=== PATIENT | female | born 1985 | race Caucasian/White ===

== ENCOUNTER 2016-07-30 07:22 | Emergency (ER) | payer OTHER ==
[~2016-07-30] VITALS: Ht 152.4 cm; Wt 98.8 kg
[~2016-07-30 07:22] MED LIST: ATV/1 PO; CYCL5TAB PO
[2016-07-30 07:26] VITALS: TEMP 38.7; Ht 152.4 cm; Wt 98.8 kg
[2016-07-30] MEDS ORDERED: KETOROLAC TROMETHAMINE 30 MG/ML VIAL IV STA (08:00)
[2016-07-30] MEDS ORDERED: SODIUM CHLORIDE 0.9% 1000ML 2,000 ML IV STA (08:00)
--- NOTE | 2016-07-30 08:05 | EMERGENCY ROOM VISIT NOTE ---
History Report prepared by Shelley: Felix Phillips Under the Supervision of: Dr. Patricia Gauthier M.D. First contact with patient: 07:30 Chief Complaint: FLU LIKE SX Stated Complaint: FEVER,HEADACHE,CHILLS,DIFFICULTY SWALLOWING History of Present Illness The patient is a 31 year old female who presents to the Emergency Room with complaints of persistent flu-like symptoms for the past few days. The patient complains of body aches, fever, ear pain, and difficulty swallowing. She notes at fever of 100.7 throughout the night last night. She notes she was taking medication including Tylenol Cold and Flu day and night pack. The patient has been sick on and off for three weeks with similar symptoms. Last week she finished Augmentin for a sinus infection. She started to feel a little bit better after the antibiotic, but then her symptoms worsened again. The patient did not get her flu shot this year. Source of History: patient Onset: past few days Position: other (global) Timing: other (persistent) Associated Symptoms: + fevers Note: Other associated symptoms: body aches, ear pain, difficulty swallowing Review of Systems See HPI for pertinent positives & negatives. A total of 10 systems reviewed and were otherwise negative. Past Medical & Surgical Medical Problems: (1) Appendectomy (2) Endomyometritis (3) History of miscarriage (4) Hx of D&C post-miscarriage Surgical Problems: (1) History of appendectomy (2) Hx of wisdom tooth extraction Family History Hypertension Social History Smoking Status: Former Smoker Alcohol Use: occasionally Drug Use: none Marital Status: in relationship Housing Status: lives with family Occupation Status: employed Current/Historical Medications Scheduled PRN Oxycodone Immediate Rel Tab (Roxicodone Ir), 1-2 TAB PO Q6 PRN for Severe Pain Allergies Coded Allergies: Nitrofurantoin (Unverified Adverse Reaction, Intermediate, RASH, STOMACH UPSET, 07/30/16) Physical Exam Vital Signs Date Time Temp Pulse Resp B/P Pulse Ox O2 Delivery O2 Flow Rate FiO2 07/30/16 10:58 112 18 129/74 97 Room Air 07/30/16 09:25 120 18 119/80 97 Room Air 07/30/16 07:26 38.7 136 18 141/85 97 Room Air Physical Exam Vital signs reviewed. General: Somewhat ill-appearing, in no significant distress. HEENT: No scleral icterus, PERRLA, neck supple. Atraumatic. Exudate on tonsils and dry cough. Cardiovascular: Tachycardic, no extra sounds. Pulmonary: Clear to auscultation bilaterally, normal work of breathing. Abdomen: Soft, nontender, nondistended, positive bowel sounds. Musculoskeletal: Atraumatic, no peripheral edema. Neurologic: Patient awake alert and oriented x 3, full strength in all 4 extremities. Cranial nerves 2 through 12 grossly intact. Skin: Warm, dry, no rash Medical Decision & Procedures ER Provider Diagnostic Interpretation: X-ray results as stated below per interpretation by me and the radiologist: CHEST ONE VIEW PORTABLE CLINICAL HISTORY: fever, cough, ST dyspnea COMPARISON STUDY: None FINDINGS: The bones soft tissues and hemidiaphragms are normal. The cardiomediastinal silhouette is normal. The lungs are clear. The pulmonary vasculature is normal. IMPRESSION: Negative chest. Electronically signed by: Jose Oconnor M.D. 07/30/2016 8:27 AM Dictated Date/Time: 07/30/2016 8:26 AM Laboratory Results 07/30/16 07:50 Red Blood Count 4.49, Mean Corpuscular Volume 79.3, Mean Corpuscular Hemoglobin 27.4, Mean Corpuscular Hemoglobin Concent 34.6, Mean Platelet Volume 9.6, Neutrophils (%) (Auto) 86.6, Lymphocytes (%) (Auto) 8.2, Monocytes (%) (Auto) 4.7, Eosinophils (%) (Auto) 0.0, Basophils (%) (Auto) 0.2, Neutrophils # (Auto) 10.00, Lymphocytes # (Auto) 0.94, Monocytes # (Auto) 0.54, Eosinophils # (Auto) 0.00, Basophils # (Auto) 0.02 07/30/16 07:50 Test 07/30/16 07:35 07/30/16 07:50 Influenza Type A (RT-PCR) Neg for Influ A (NEG) Influenza Type B (RT-PCR) Neg for Influ B (NEG) White Blood Count 11.53 K/uL (4.8-10.8) Red Blood Count 4.49 M/uL (4.2-5.4) Hemoglobin 12.3 g/dL (12.0-16.0) Hematocrit 35.6 % (37-47) Mean Corpuscular Volume 79.3 fL (80-100) Mean Corpuscular Hemoglobin 27.4 pg (25-34) Mean Corpuscular Hemoglobin Concent 34.6 g/dl (32-36) Platelet Count 234 K/uL (130-400) Mean Platelet Volume 9.6 fL (7.4-10.4) Neutrophils (%) (Auto) 86.6 % Lymphocytes (%) (Auto) 8.2 % Monocytes (%) (Auto) 4.7 % Eosinophils (%) (Auto) 0.0 % Basophils (%) (Auto) 0.2 % Neutrophils # (Auto) 10.00 K/uL (1.4-6.5) Lymphocytes # (Auto) 0.94 K/uL (1.2-3.4) Monocytes # (Auto) 0.54 K/uL (0.11-0.59) Eosinophils # (Auto) 0.00 K/uL (0-0.5) Basophils # (Auto) 0.02 K/uL (0-0.2) RDW Standard Deviation 40.7 fL (36.4-46.3) RDW Coefficient of Variation 14.3 % (11.5-14.5) Immature Granulocyte % (Auto) 0.3 % Immature Granulocyte # (Auto) 0.03 K/uL (0.00-0.02) Anion Gap 12.0 mmol/L (3-11) Est Creatinine Clear Calc Drug Dose 110.8 ml/min Estimated GFR () 117.2 Estimated GFR (Non- 101.2 BUN/Creatinine Ratio 11.1 (10-20) Calcium Level 8.9 mg/dl (8.5-10.1) Total Bilirubin 0.5 mg/dl (0.2-1) Direct Bilirubin < 0.1 mg/dl (0-0.2) Aspartate Amino Transf (AST/SGOT) 10 U/L (15-37) Alanine Aminotransferase (ALT/SGPT) 19 U/L (12-78) Alkaline Phosphatase 58 U/L (45-117) Total Protein 7.9 gm/dl (6.4-8.2) Albumin 3.7 gm/dl (3.4-5.0) Human Chorionic Gonadotropin, Qual NEG (NEG) Monoscreen NEG (NEG) Laboratory results per my review. Medications Administered Medications (Trade) Dose Ordered Sig/Federica Route Start Time Stop Time Status Last Admin Dose Admin Ketorolac Tromethamine 30 mg 30 mg NOW STAT IV 07/30/16 08:00 07/30/16 08:02 DC 07/30/16 08:17 30 MG Sodium Chloride (Nss 1000ml) 2,000 ml @ 999 mls/hr Q2H1M STAT IV 07/30/16 08:00 07/30/16 10:00 DC 07/30/16 08:17 999 MLS/HR Acetaminophen (Tylenol Tab) 650 mg STK-MED ONCE .ROUTE 07/30/16 09:59 07/30/16 10:01 DC 07/30/16 10:09 650 MG ED Course 0759: Past medical records reviewed. The patient was evaluated in room B5. A complete history and physical examination was performed. 0800: Ordered NSS 2000 ml @ 999 mls/hr IV, Toradol Inj 30 mg IV. 0959: Ordered Tylenol Tab 650 mg .ROUTE. 1056: Upon reevaluation, the patient appeared to have improvement of her symptoms. I discussed findings with her. She verbalized agreement of the treatment plan. The patient was discharged home. Medical Decision Fever: Influenza, other viral illness, pneumonia, strep pharyngitis, urinary tract infection, metabolic abnormality, medication effect, cellulitis, meningitis, intra-abdominal source. This pt was evaluated and appeared to be in no distress. IV access was obtained and lab work was drawn. PT was placed on the cardiac monitor technician. She was hydrated with NSS. Lab work is fairly unrevealing with exception of a mild leukocytosis. Influenza and strep swabs are negative, formal throat culture is pending. Pt felt improvement after IV toradol and oral tylenol. Pt was informed of the findings and agrees with the plan. She will f/u with her PCP and return to the ED for worsening of symptoms or any medical concerns. Impression Primary Impression: Influenza-like symptoms Scribe Attestation The scribe's documentation has been prepared under my direction and personally reviewed by me in its entirety. I confirm that the note above accurately reflects all work, treatment, procedures, and medical decision making performed by me. Departure Information Dispostion Home / Self-Care Prescriptions Oxycodone Immediate Rel Tab (ROXICODONE IR) 5 Mg Tab 1-2 TAB PO Q6 Y for Severe Pain, #15 TAB Prov: Abrahan, Patricia B.,M.D. 07/30/16 Referrals No Doctor, Assigned (PCP) Forms HOME CARE DOCUMENTATION FORM, IMPORTANT VISIT INFORMATION Patient Instructions My [facility] Additional Instructions Diagnosis: Flulike symptoms Tylenol 650 mg every 6 hours as needed for pain or fever Ibuprofen 600 mg every 6 hours as needed for pain or fever. OxyIR 5-10 mg every 6 hours as needed for severe pain. Do not drive on this medication. Drink plenty of clear fluids. Follow-up with your physician this week for reevaluation. Return to the ER for worsening of symptoms or any medical concerns.
[2016-07-30 08:16] LABS: BASO % 0.2 %; BASO ABS # 0.02 K/uL (0-0.2); COMPLETE YES; HEMATOCRIT 35.6 % (37-47); IG% 0.3 %; LYMPH % 8.2 %; LYMPH ABS # 0.94 K/uL (1.2-3.4); MEAN CELL VOLUME 79.3 fL (80-100); MEAN CORPUSCULAR HEMOGLOBIN 27.4 pg (25-34); MEAN CORPUSCULAR HGB CONC 34.6 g/dl (32-36); MEAN PLATELET VOLUME 9.6 fL (7.4-10.4); MONO % 4.7 %; NEUT % 86.6 %; PLATELET COUNT 234 K/uL (130-400); RED BLOOD COUNT 4.49 M/uL (4.2-5.4); WHITE BLOOD COUNT 11.53 K/uL (4.8-10.8)
--- NOTE | 2016-07-30 08:28 | DIAGNOSTIC IMAGING REPORT ---
CHEST ONE VIEW PORTABLE CLINICAL HISTORY: fever, cough, ST dyspnea COMPARISON STUDY: None FINDINGS: The bones soft tissues and hemidiaphragms are normal. The cardiomediastinal silhouette is normal. The lungs are clear. The pulmonary vasculature is normal. IMPRESSION: Negative chest. Electronically signed by: Jose Oconnor M.D. 07/30/2016 8:27 AM Dictated Date/Time: 07/30/2016 8:26 AM
[2016-07-30 08:35] LABS: ALT/SGPT 19 U/L (12-78); BLOOD UREA NITROGEN 9 mg/dl (7-18); BUN/CREATININE RATIO 11.1 (10-20); CALCIUM 8.9 mg/dl (8.5-10.1); CARBON DIOXIDE 20 mmol/L (21-32); CHLORIDE 106 mmol/L (98-107); CREATININE 0.79 mg/dl (0.60-1.20); GLUCOSE 100 mg/dl (70-99); POTASSIUM 3.6 mmol/L (3.5-5.1); SODIUM 138 mmol/L (136-145)
[2016-07-30 08:38] LABS: ALKALINE PHOSPHATASE 58 U/L (45-117); AST/SGOT 10 U/L (15-37)
[2016-07-30 08:49] LABS: PREG INTERNAL NEGATIVE QC NEG CLEAR BACKGROUND; PREG INTERNAL POSITIVE QC POS CONTROL LINE
[2016-07-30] MEDS ORDERED: ACETAMINOPHEN 325 MG TAB ONE (09:59)
[2016-07-30] MEDS ORDERED: NURSING VERBAL MED ORDER ONE (10:00)
[2016-07-30] MEDS ORDERED: OXYC1TAB3 PO (10:49)
[2016-07-30 10:58] VITALS: BP 129/74; PULSE 112; O2SAT 97
[2016-07-30 11:05] LABS: INFLUENZA A PCR Neg for Influ A (NEG); INFLUENZA B PCR Neg for Influ B (NEG)
--- NOTE | 2016-08-01 06:43 | EMERGENCY ROOM VISIT NOTE ---
ED Visit Note First contact with patient: 07:30 Pt's throat culture was reviewed. + Beta hemolytic strep. Pt will be notified by nursing staff of amoxicillin Rx 500 mg TID for 7 days. She will f/u with her PCP this week.
--- NOTE | 2016-08-01 12:19 | Pharmacy Progress Note ---
ED Pharmacist Culture FollowUp Date of Service: Aug 01, 2016. Preliminary Grp A Strep backup culture was growing beta-hemolytic colonies; this was reviewed by Dr Gauthier. Dr Gauthier gave verbal Rx for Amoxicillin 500mg PO TID x 7 days. I contacted the patient, Kaylee, via phone and she request that Rx be called to [facility] on [address] ([phone]). The Rx was called to this pharmacy successfully.
[2016-08-01 17:34] LABS: EBV EARLY ANTIGEN AB <0.91 INDEX; EPSTEIN BARR VIR CAPSID IGG <0.91 INDEX
== END 2016-07-30 11:08 | disposition home or self-care (01) ==
LOC: C.EDB 07:23
DX: R50.9 Fever, unspecified (principal); H92.09 Otalgia, unspecified ear; R13.10 Dysphagia, unspecified; Z87.891 Personal history of nicotine dependence; Z82.49 Family history of ischemic heart disease and other diseases of the circulatory system

== ENCOUNTER 2017-05-24 16:23 | Emergency (ER) | payer OTHER ==
[~2017-05-24] VITALS: Ht 152.4 cm; Wt 93.8 kg
[2017-05-24 16:26] VITALS: TEMP 37; Ht 152.4 cm; Wt 93.8 kg
[2017-05-24] MEDS: RANITIDINE HCL 50 MG/100 ML D5W IV STA ×2 (16:34→17:50)
[2017-05-24] MEDS ORDERED: ALPRAZOLAM 0.5 MG TAB PO STA (16:34)
[2017-05-24] MEDS: LACTATED RINGER'S 1000ML 1,000 ML IV STA ×2 (16:34→17:51)
[2017-05-24] MEDS ORDERED: ALPR-385 PO (16:41)
[2017-05-24] MEDS ORDERED: ONDANSETRON INJ 2 MG/ML 2 ML VIAL IV STA (16:48)
[2017-05-24 16:55] VITALS: O2SAT 100
--- NOTE | 2017-05-24 16:59 | EMERGENCY ROOM VISIT NOTE ---
History Report prepared by Shelley: Juanita Fitzpatrick Under the Supervision of: Dr. Los Abdullahi M.D. First contact with patient: 16:26 Chief Complaint: ALLERGIC REACTION Stated Complaint: ALLERGIC REACTION/ TYLENOL Nursing Triage Summary: pt reports she took tylenol cold and flu severe 1 hour later she developed hives, SOB, and tightness in her throat she went to the [facility] clinic where she was given 125ml Solumedrol and 50 of Benadryl History of Present Illness The patient is a 32 year old female who presents to the Emergency Room with complaints of an episode of an allergic reaction beginning an hour and a half ago. The patient reports taking generic Tylenol Cold and Flu and developing hives, shortness of breath and a difficulty to swallow. The patient notes taking the brand name Tylenol Cold and Flu for the past couple days with no problems. She reports taking the brand name Tylenol this morning and then taking the generic brand six hours later. She believes this generic medication caused her reaction. Prior to arrival, the patient went to [facility] who gave her Benadryl and a steroid. She notes [facility] tried to give her an Epipen but it was accidently administered it to the provider. She did not end up getting an Epipen because she started to feel better. She denies any new laundry detergents or any other know medication allergies. Presently, the patient notes itchiness on her back, nausea, and she reports her mouth feels dry. The patient has a history of PTSD and anxiety and takes 1 mg of Xanax as needed. Source of History: patient Onset: an hour and a half ago Position: other (generalized) Quality: other (allergic reaction) Timing: other (episode) Associated Symptoms: + SOB, + nausea Note: the patient notes itchiness on her back, hives, and difficulty swallowing, and she states her mouth feels dry. Review of Systems See HPI for pertinent positives and negatives. A total of ten systems were reviewed and were otherwise negative. Past Medical & Surgical Medical Problems: (1) Anxiety (2) Appendectomy (3) Endomyometritis (4) History of miscarriage (5) Hx of D&C post-miscarriage (6) PTSD (post-traumatic stress disorder) Surgical Problems: (1) History of appendectomy (2) Hx of wisdom tooth extraction Family History Hypertension Social History Smoking Status: Current Some Day Smoker Alcohol Use: occasionally Drug Use: none Marital Status: in relationship Housing Status: lives with family Occupation Status: employed Current/Historical Medications Scheduled Alprazolam (Xanax), 1 MG PO BID Prednisone (Prednisone), 3 TAB PO DAILY Ranitidine Hcl (Zantac), 1 TAB PO BID Scheduled PRN Diphenhydramine Hcl (Benadryl), 25 MG PO Q4H PRN for Itching Allergies Coded Allergies: Acetaminophen (Unverified Adverse Reaction, Severe, THROAT SWELLING/HIVES , 05/24/17) [place] [employer] [facility] (Unverified Adverse Reaction, Severe, THROAT SWELLING/ HIVES, 05/24/17) Dextromethorphan (Unverified Adverse Reaction, Severe, THROAT SWELLING/ HIVES, 05/24/17) Polyethylene Glycol (Unverified Adverse Reaction, Severe, THROAT SWELLING/ HIVES, 05/24/17) Propylene Glycol (Unverified Adverse Reaction, Severe, THROAT SWELLING/ HIVES, 05/24/17) Pseudoephedrine (Unverified Adverse Reaction, Severe, THROAT SWELLING/ HIVES, 05/24/17) Nitrofurantoin (Unverified Adverse Reaction, Intermediate, RASH, STOMACH UPSET, 07/30/16) Physical Exam Vital Signs Date Time Temp Pulse Resp B/P (MAP) Pulse Ox O2 Delivery O2 Flow Rate FiO2 05/24/17 19:35 80 20 132/72 98 05/24/17 18:00 76 16 134/76 98 Room Air 100 05/24/17 16:55 100 Room Air 05/24/17 16:55 100 Room Air 05/24/17 16:26 37.0 82 16 132/81 100 Room Air 05/24/17 16:24 Room Air 100 Physical Exam GENERAL: Awake, alert, anxious-appearing, in no distress HENT: Normocephalic, atraumatic. No oropharyngeal edema or injection, no tongue elevation or trismus. EYES: Normal conjunctiva. Sclera non-icteric. NECK: Supple. No nuchal rigidity. FROM. No JVD. RESPIRATORY: No stridor on auscultation, clear lungs. CARDIAC: Regular rate, normal rhythm. Extremities warm and well perfused. Pulses equal. ABDOMEN: Soft, non-distended. No tenderness to palpation. No rebound or guarding. No masses. RECTAL: Deferred. MUSCULOSKELETAL: Chest examination reveals no tenderness. The back is symmetrical on inspection without obvious abnormality. There is no CVA tenderness to palpation. No joint edema. LOWER EXTREMITIES: Calves are equal size bilaterally and non-tender. No edema. No discoloration. NEURO: Normal sensorium. No sensory or motor deficits noted. SKIN: Scant amount of raised erythema that is blanchable, consistent with hives , on anterior neck and upper chest. Medical Decision & Procedures Medications Administered Medications (Trade) Dose Ordered Sig/Federica Route Start Time Stop Time Status Last Admin Dose Admin Alprazolam (Xanax Tab) 1 mg NOW STAT PO 05/24/17 16:34 05/24/17 16:40 DC 05/24/17 16:34 1 MG Ondansetron HCl (Zofran Inj) 4 mg NOW STAT IV 05/24/17 16:48 05/24/17 16:49 DC 05/24/17 16:48 4 MG Lorazepam (Ativan Tab) 1 mg NOW STAT PO 05/24/17 18:08 05/24/17 18:09 DC 05/24/17 18:08 1 MG ECG Indication: other (allergic reaction) Rate (beats per minute): 95 Rhythm: normal sinus Findings: no acute ischemic change, other (Normal axis, normal intervals) ED Course 1629: The patient was evaluated in room B5. A complete history and physical exam was performed. 1803: The patient explained her PTSD surrounds of her child who was born at [facility]. Since this incident she has severe anxiety regarding hospitals. Series of events today has caused the patient severe anxiety and states she wants to leave the ED and go home. She has infiltration to her right AC. The patient is agreeable to staying and getting Ativan the discussing her treatment options further. 0: I discussed the patient's infiltration with pharmacy. They confirmed that both that medications administered can be given IM so they will cause no soft tissue effects. They recommended typical compression care. 1850: The patient is feeling much better. I offered her opportunity to speak to patient advocacy and she refused. 1921: I reevaluated the patient. Discussed results and discharge instructions: She verbalized understanding and agreement. The patient is ready for discharge. Medical Decision I reviewed the patient's past medical history, medications, and the nursing notes as described above. Differential Diagnoses: allergic reaction, medication toxicity, viral syndrome, panic attack. The patient is a 32-year-old woman with a past medical history PTSD who takes Xanax infrequently to emergency Department from [facility] urgent care for presumed allergic reaction after taking generic [employer] Tylenol Cold and flu per history of present illness. She received Solu-Medrol and 50 g of Benadryl. Apparently they were going to administer an EpiPen but upon administration was accidentally administered to the provider. The patient felt improved and therefore Epi was deferred at that time. On arrival the patient is anxious appearing but in no acute distress. She has no oral pharyngeal edema or injection. Stridor on auscultation. She is scant patches of raised blanchable erythema consistent with hives on her anterior neck and upper chest. Lungs are clear. No other rashes. IV placed for further management but was noticed by RN to have extravasated after having been given zofran and Zantac only. Subsequently, the patient experienced mild amount swelling and associated pain. The patient became tearful and even more anxious and was refusing additional treatment as her PTSD surrounds the loss of her child after in the hospital setting, specifically at [facility]. Patient was agreeable to take Ativan and upon re- evaluation was feeling much improved and able to discuss her concerns. Hives mostly resolved. Thus no need for additional treatment at this time. Given Rx for prednisone. Regarding extravasation, I d/w pharmacy and supportive care should be sufficient given zofran/zantac can be given IM. Instructions given for extravasation. Findings and plan for follow-up reviewed with patient. Patient agreeable and d/c'd per discharge instructions. Medication Reconcilliation Current Medication List: was personally reviewed by me Blood Pressure Screening Patient's blood pressure: Normal blood pressure Impression Primary Impression: Allergic reaction Additional Impression: Intravenous infiltration Scribe Attestation The scribe's documentation has been prepared under my direction and personally reviewed by me in its entirety. I confirm that the note above accurately reflects all work, treatment, procedures, and medical decision making performed by me. Departure Information Dispostion Home / Self-Care Prescriptions Prednisone (Prednisone) 20 Mg Tab 3 TAB PO DAILY for 4 Days, #12 TAB FOR 4 DAYS Prov: Los Abdullahi M.D. 05/24/17 Ranitidine Hcl (ZANTAC) 150 Mg Tab 1 TAB PO BID for 7 Days, #14 TAB Prov: Los Abdullahi M.D. 05/24/17 Diphenhydramine Hcl (Benadryl) 25 Mg Cap 25 MG PO Q4H Y for Itching, #20 CAP Prov: Los Abdullahi M.D. 05/24/17 Referrals Kaylee Raphael D.O. (PCP) Forms HOME CARE DOCUMENTATION FORM, IMPORTANT VISIT INFORMATION Patient Instructions ED Allergic Reaction General Other, My [facility] Additional Instructions Please follow up with your primary care physician in the next 1-3 days for re- evaluation. You likely had an allergic reaction. Otherwise, your exam and EKG did not show signs of an emergent condition at this time. Prednisone, Benadryl and Zantac as directed. You and additionally had an infiltration of your IV site resulting in extravasation of Zofran and Zantac into your soft tissue. These medications are also given intramuscularly and therefore you are unlikely to have any emergent effects from this. There will be swelling and pain which should resolve over time and should be treated conservatively with the following: Elevation, compression, warm or cold compresses, and maintenance of activity as pain tolerates. He should return to emergency department if you experience any new or worsening redness with warmth and associated fevers, chills, or nausea and vomiting that could indicate a systemic infection. Take acetaminophen for pain as needed. Return to the emergency department for worsening symptoms as described in the accompanying instructions. Problem Qualifiers
[2017-05-24] MEDS: DiphenhydrAMINE HCL 50 MG/ML VIAL IV STA ×2 (17:16→17:50)
[2017-05-24] MEDS: DEXAMETHASONE SOD INJ 4 MG/ML VIAL IV STA ×2 (17:16→17:51)
[2017-05-24] MEDS ORDERED: LORAZEPAM 1 MG TAB PO STA (18:08)
[2017-05-24] MEDS ORDERED: RANI150T3 PO (19:06)
[2017-05-24] MEDS ORDERED: DIPH25CA5 PO (19:06)
[2017-05-24] MEDS ORDERED: PRED20TA PO (19:06)
[2017-05-24 19:35] VITALS: BP 132/72; PULSE 80; O2SAT 98
== END 2017-05-24 19:35 | disposition home or self-care (01) ==
LOC: EDBD 16:23 → C.EDB 16:24
DX: T78.40XA Allergy, unspecified, initial encounter (principal); X58.XXXA Exposure to other specified factors, initial encounter; T80.818A Extravasation of other vesicant agent, initial encounter; Y84.8 Other medical procedures as the cause of abnormal reaction of the patient, or of later complication, without mention of misadventure at the time of the procedure; Y92.239 Unspecified place in hospital as the place of occurrence of the external cause; F43.10 Post-traumatic stress disorder, unspecified; F41.9 Anxiety disorder, unspecified; F17.200 Nicotine dependence, unspecified, uncomplicated

== ENCOUNTER 2017-06-08 00:16 | Emergency (ER) | payer OTHER ==
[~2017-06-08] VITALS: Ht 152.4 cm; Wt 86.0 kg
[~2017-06-08 00:16] MED LIST changes: +ALPR-385 PO; -ATV/1 PO; -CYCL5TAB PO; +DIPH25CA5 PO; +RANI150T3 PO
[2017-06-08 00:28] VITALS: TEMP 36.7; Ht 152.4 cm; Wt 86.0 kg
[2017-06-08] MEDS ORDERED: SODIUM CHLORIDE 0.9% 1000ML 1,000 ML IV STA (01:05)
[2017-06-08] MEDS ORDERED: DiphenhydrAMINE HCL 50 MG/ML VIAL IV STA (01:05)
[2017-06-08 01:13] LABS: BASO % 0.2 %; BASO ABS # 0.02 K/uL (0-0.2); COMPLETE YES; EOS % 1.4 %; HEMATOCRIT 40.5 % (37-47); IG% 0.3 %; LYMPH % 28.6 %; LYMPH ABS # 2.77 K/uL (1.2-3.4); MEAN CORPUSCULAR HEMOGLOBIN 28.9 pg (25-34); MEAN CORPUSCULAR HGB CONC 34.8 g/dl (32-36); MEAN PLATELET VOLUME 9.3 fL (7.4-10.4); MONO % 5.9 %; NEUT % 63.6 %; PLATELET COUNT 297 K/uL (130-400); RED BLOOD COUNT 4.88 M/uL (4.2-5.4)
[2017-06-08] MEDS ORDERED: DEXAMETHASONE **PF** INJ 10 MG/ML VIAL IV ONE (01:15)
[2017-06-08 01:16] LABS: URINE APPEARANCE CLEAR (CLEAR); URINE BILIRUBIN NEG (NEG); URINE COLOR YELLOW; URINE NITRITE NEG (NEG); URINE SPECIFIC GRAVITY 1.015 (1.000-1.030); UROBILINOGEN NEG (NEG); ZZUR CULT IF INDIC CLEAN CATCH NO
[2017-06-08 01:23] LABS: MANUAL MICROSCOPIC REQUIRED? NO; REVIEW REQ? NO
[2017-06-08] MEDS ORDERED: ONDANSETRON INJ 2 MG/ML 2 ML VIAL IV STA (01:27)
[2017-06-08] MEDS ORDERED: KETOROLAC TROMETHAMINE 30 MG/ML VIAL IV STA (01:27)
--- NOTE | 2017-06-08 01:32 | EMERGENCY ROOM VISIT NOTE ---
History Report prepared by Shelley: Pee Erazo Under the Supervision of: Dr. Anton Agarwal M.D. First contact with patient: 00:32 Chief Complaint: ALLERGIC REACTION Stated Complaint: STAITED AMPICILIN X 6HRS,HIVES,VOMITING,ABD PAIN History of Present Illness The patient is a 32 year old female who presents to the Emergency Room with complaints of a constant allergic reaction starting earlier today. The patient states that she has been taking ampicillin for MRSA, and today she has been having rashes on her arms, and she states that she has some abdominal pain and burning pain on her back. She additionally notes that she has been vomiting and had sever diarrhea. The patient reports that two weeks ago she had an allergic reaction to Tylenol Cold and Flu and was given prednisone. The patient denies any fevers or loss of consciousness. Source of History: patient Onset: earlier today Position: arm (bilateral) Quality: other (rash) Timing: constant Associated Symptoms: + abdominal pain, No LOC, No fevers Review of Systems See HPI for pertinent positives & negatives. A total of 10 systems reviewed and were otherwise negative. Past Medical & Surgical Medical Problems: (1) Anxiety (2) Appendectomy (3) Endomyometritis (4) History of miscarriage (5) Hx of D&C post-miscarriage (6) PTSD (post-traumatic stress disorder) Surgical Problems: (1) History of appendectomy (2) Hx of wisdom tooth extraction Family History Hypertension Social History Smoking Status: Never Smoker Alcohol Use: occasionally Drug Use: none Marital Status: in relationship Housing Status: lives with family Occupation Status: employed Current/Historical Medications Scheduled Methylprednisolone (Medrol Dosepak), 1 PKT PO UD Scheduled PRN Alprazolam (Xanax), 1 MG PO BID PRN for Anxiety Diphenhydramine Hcl (Benadryl), 25 MG PO Q4H PRN for Itching Allergies Coded Allergies: Ampicillin (Verified Allergy, Intermediate, RASH, 06/08/17) Acetaminophen (Unverified Adverse Reaction, Severe, THROAT SWELLING/HIVES , 06/08/17) [place] Blue [facility]CF (Unverified Adverse Reaction, Severe, THROAT SWELLING/ HIVES, 06/08/17) Dextromethorphan (Unverified Adverse Reaction, Severe, THROAT SWELLING/ HIVES, 06/08/17) Polyethylene Glycol (Unverified Adverse Reaction, Severe, THROAT SWELLING/ HIVES, 06/08/17) Propylene Glycol (Unverified Adverse Reaction, Severe, THROAT SWELLING/ HIVES, 06/08/17) Pseudoephedrine (Unverified Adverse Reaction, Severe, THROAT SWELLING/ HIVES, 06/08/17) Nitrofurantoin (Unverified Adverse Reaction, Intermediate, RASH, STOMACH UPSET, 06/08/17) Physical Exam Vital Signs Date Time Temp Pulse Resp B/P (MAP) Pulse Ox O2 Delivery O2 Flow Rate FiO2 06/08/17 03:15 82 16 101/75 97 06/08/17 02:20 103 16 131/68 95 Room Air 06/08/17 01:17 106 16 125/81 100 Room Air 06/08/17 00:47 100 Room Air 06/08/17 00:28 36.7 119 22 127/84 100 Room Air Physical Exam GENERAL: Patient is anxious appearing in moderate distress. HEENT: No acute trauma, normocephalic atraumatic, mucous membranes moist, no nasal congestion, no scleral icterus. NECK: No stridor, no adenopathy, no meningismus, trachea is midline. LUNGS: No dyspnea. Clear to auscultation and equal bilaterally. No wheeze, no rhonchi. HEART: Regular rate and rhythm. No murmurs, rubs, gallops appreciated. ABDOMEN: Soft, nontender, bowel sounds positive, no masses appreciated, no peritonitis. BACK: No midline tenderness, no CVA tenderness EXTREMITIES: Normal motion all extremities, no cyanosis, no edema. NEUROLOGIC: Alert and oriented, no acute motor or sensory deficits, no focal weakness, cranial nerves grossly intact. SKIN: Diffuse hives and urticaria on bilateral arms and upper chest. No jaundice , no diaphoresis. Medical Decision & Procedures Laboratory Results 06/08/17 00:45 Red Blood Count 4.88, Mean Corpuscular Volume 83.0, Mean Corpuscular Hemoglobin 28.9, Mean Corpuscular Hemoglobin Concent 34.8, Mean Platelet Volume 9.3, Neutrophils (%) (Auto) 63.6, Lymphocytes (%) (Auto) 28.6, Monocytes (%) (Auto) 5.9, Eosinophils (%) (Auto) 1.4, Basophils (%) (Auto) 0.2, Neutrophils # (Auto) 6.17, Lymphocytes # (Auto) 2.77, Monocytes # (Auto) 0.57, Eosinophils # (Auto) 0.14, Basophils # (Auto) 0.02 06/08/17 00:45 Test 06/08/17 00:45 06/08/17 01:00 White Blood Count 9.70 K/uL (4.8-10.8) Red Blood Count 4.88 M/uL (4.2-5.4) Hemoglobin 14.1 g/dL (12.0-16.0) Hematocrit 40.5 % (37-47) Mean Corpuscular Volume 83.0 fL (80-100) Mean Corpuscular Hemoglobin 28.9 pg (25-34) Mean Corpuscular Hemoglobin Concent 34.8 g/dl (32-36) Platelet Count 297 K/uL (130-400) Mean Platelet Volume 9.3 fL (7.4-10.4) Neutrophils (%) (Auto) 63.6 % Lymphocytes (%) (Auto) 28.6 % Monocytes (%) (Auto) 5.9 % Eosinophils (%) (Auto) 1.4 % Basophils (%) (Auto) 0.2 % Neutrophils # (Auto) 6.17 K/uL (1.4-6.5) Lymphocytes # (Auto) 2.77 K/uL (1.2-3.4) Monocytes # (Auto) 0.57 K/uL (0.11-0.59) Eosinophils # (Auto) 0.14 K/uL (0-0.5) Basophils # (Auto) 0.02 K/uL (0-0.2) RDW Standard Deviation 39.5 fL (36.4-46.3) RDW Coefficient of Variation 13.1 % (11.5-14.5) Immature Granulocyte % (Auto) 0.3 % Immature Granulocyte # (Auto) 0.03 K/uL (0.00-0.02) Anion Gap 8.0 mmol/L (3-11) Est Creatinine Clear Calc Drug Dose 100.2 ml/min Estimated GFR () 114.7 Estimated GFR (Non- 98.9 BUN/Creatinine Ratio 15.4 (10-20) Calcium Level 9.7 mg/dl (8.5-10.1) Total Bilirubin 0.3 mg/dl (0.2-1) Direct Bilirubin < 0.1 mg/dl (0-0.2) Aspartate Amino Transf (AST/SGOT) 10 U/L (15-37) Alanine Aminotransferase (ALT/SGPT) 19 U/L (12-78) Alkaline Phosphatase 71 U/L (45-117) Total Protein 8.1 gm/dl (6.4-8.2) Albumin 4.1 gm/dl (3.4-5.0) Lipase 182 U/L (73-393) Urine Color YELLOW Urine Appearance CLEAR (CLEAR) Urine pH 7.0 (4.5-7.5) Urine Specific [place] 1.015 (1.000-1.030) Urine Protein NEG (NEG) Urine Glucose (UA) NEG (NEG) Urine Ketones NEG (NEG) Urine Occult Blood NEG (NEG) Urine Nitrite NEG (NEG) Urine Bilirubin NEG (NEG) Urine Urobilinogen NEG (NEG) Urine Leukocyte Esterase NEG (NEG) Urine WBC (Auto) 0 /hpf (0-5) Urine RBC (Auto) 0-4 /hpf (0-4) Urine Hyaline Casts (Auto) 0 /lpf (0-5) Urine Epithelial Cells (Auto) 5-10 /lpf (0-5) Urine Bacteria (Auto) NEG (NEG) Urine Test NEG (NEG) Laboratory results as reviewed by me. Medications Administered Medications (Trade) Dose Ordered Sig/Federica Route Start Time Stop Time Status Last Admin Dose Admin Diphenhydramine HCl (Benadryl Inj) 50 mg NOW STAT IV 06/08/17 01:05 06/08/17 01:07 NC 06/08/17 01:13 50 MG Dexamethasone Sodium Phosphate (Dexamethasone Inj Pf) 10 mg NOW ONCE IV 06/08/17 01:15 06/08/17 01:16 NC 06/08/17 01:14 10 MG Sodium Chloride 1,000 ml @ 999 mls/hr Q1H1M STAT IV 06/08/17 01:05 06/08/17 02:05 DC 06/08/17 01:13 999 MLS/HR Ketorolac Tromethamine (Toradol Inj) 30 mg NOW STAT IV 06/08/17 01:27 06/08/17 01:29 NC 06/08/17 01:33 30 MG Ondansetron HCl (Zofran Inj) 4 mg NOW STAT IV 06/08/17 01:27 06/08/17 01:29 DC 06/08/17 01:32 4 MG Prochlorperazine Edisylate (Compazine Inj) 5 mg NOW STAT IV 06/08/17 02:27 06/08/17 02:28 DC 06/08/17 02:30 5 MG ED Course 0032: The patient was evaluated in room B3. A complete history and physical exam was performed. 0222: I reevaluated the patient, and all of her symptoms are going away including her rash, however she is now having a headache and wants some medications for her headache. I discussed getting a CT scan, and she decline. I advised the dangers of using narcotics for headaches, and how I felt they were not advisable. 0256: The patient is feeling better and drinking Kathryn Yudy. 0305: I reevaluated the patient, and she is feeling better, and the rash is gone. The patient would like to go home, so she will be discharged home. Medical Decision Differential: Allergic Reaction, Urticaria, Anaphylaxis, Herrera-Chris Syndrome, Toxic Epidermal Necrolysis, Erythema Multiforme, Cellulitis, amongst other etiologies entertained. 32 yr old female with hives/urticarial reaction over arms/upper chest. No respiratory issues. Not SJS/TEN. No anaphylactic. Started shortly after amp use. Looks well and feeling much better after above (small does compazine for headache). No evidence meningitis. She is stable and in no distress, drinking soda and asking for discharge. As recently on Pred will do medrol taper this time. Reviewed symptoms requiring return. Medication Reconcilliation Current Medication List: was personally reviewed by me Blood Pressure Screening Patient's blood pressure: Normal blood pressure Impression Primary Impression: Allergic reaction Additional Impression: Urticaria Scribe Attestation The scribe's documentation has been prepared under my direction and personally reviewed by me in its entirety. I confirm that the note above accurately reflects all work, treatment, procedures, and medical decision making performed by me. Departure Information Dispostion Home / Self-Care Prescriptions Methylprednisolone (MEDROL DOSEPAK) 4 Mg Zechariah 1 PKT PO UD for 6 Days, #1 PKT Prov: Anton Agarwal M.D. 12/11/17 Referrals No Doctor, Assigned (PCP) Forms HOME CARE DOCUMENTATION FORM, IMPORTANT VISIT INFORMATION Patient Instructions ED Drug React Allergic, [facility] Problem Qualifiers
[2017-06-08 01:33] LABS: ALT/SGPT 19 U/L (12-78); AST/SGOT 10 U/L (15-37); BLOOD UREA NITROGEN 12 mg/dl (7-18); BUN/CREATININE RATIO 15.4 (10-20); CALCIUM 9.7 mg/dl (8.5-10.1); CARBON DIOXIDE 26 mmol/L (21-32); CHLORIDE 103 mmol/L (98-107); GLUCOSE 83 mg/dl (70-99); POTASSIUM 3.8 mmol/L (3.5-5.1); SODIUM 137 mmol/L (136-145)
[2017-06-08 01:36] LABS: ALKALINE PHOSPHATASE 71 U/L (45-117)
[2017-06-08] MEDS ORDERED: PROCHLORPERAZINE 5 MG/ML 2 ML VIAL IV STA (02:27)
[2017-06-08] MEDS ORDERED: METH4PAK PO (03:12)
[2017-06-08 03:15] VITALS: BP 101/75; PULSE 82; O2SAT 97
== END 2017-06-08 03:30 | disposition home or self-care (01) ==
LOC: C.EDB 00:19
DX: T36.0X5A Adverse effect of penicillins, initial encounter (principal); L50.0 Allergic urticaria; Z82.49 Family history of ischemic heart disease and other diseases of the circulatory system